=== PATIENT | female | born 1970 | race Hispanic/Latino ===

== ENCOUNTER 2017-12-14 20:21 | Emergency (ER) | payer MEDICARE ==
--- NOTE | 2017-12-15 01:40 | Emergency Department Report ---
[facility] Chief Complaint: Eye Problems Stated Complaint: EYE IRRITATION Time Seen by Provider: 12/15/17 01:28 Duration: 2 Days Severity: moderate Symptoms: Yes Eye Itching, Yes Eye Redness, Yes Mucous Drainage, Yes Purulent Drainage, No Eye Pain, No Blurred Vision, No Preceding URI, No H/O Allergic Rhinitis, No Contact Lens Use, No Trauma, No Fever Other History: 47-year-old female comes in with eye irritation for 2 days. She reports her eyes are crusted shut this morning now swollen. She admits that they itch. Denies any pain no contact usea contact. ED Review of Systems ROS: Stated complaint: EYE IRRITATION Other details as noted in HPI Comment: All other systems reviewed and negative ED Past Medical Hx - Past Medical History Previous Medical History?: Yes Hx Hypertension: Yes Hx CVA: Yes Hx Heart Attack/AMI: Yes Hx GERD: Yes Hx of Cancer: Yes (hodgkins lymphoma, lukemia) Hx Arthritis: Yes Hx Headaches / Migraines: Yes Hx Kidney Stones: Yes Hx Psychiatric Treatment: Yes (anxiety PTSD) Hx Asthma: Yes Hx Tuberculosis: Yes (Latent) Additional medical history: mitral valve regurgitation, myoptic nerve detoration , conductive and centry hearing loss - Surgical History Past Surgical History?: Yes Hx Cholecystectomy: Yes Hx Appendectomy: Yes Additional Surgical History: Heart cath, hysterectomy, hernia repair, colonoscopy, B/L wrist, Left Knee X3, Right Ankle X3, Back, Neck X3, B/L ears, tonsilectomy, adenoids, throat - Social History Smoking Status: Current Every Day Smoker Substance Use Type: None - Medications Home Medications: Home Medications Medication Instructions Recorded Confirmed Last Taken Type Erythromycin [Erythromycin Ophth 1 applic OP QID #1 tube 12/15/17 Unknown Rx Oint] [facility] Exam - Exam General: Vital signs noted. No distress. Alert and acting appropriately. Eye Exam: Both EOMI, Both Photophobia, Neither Injection, Neither Eye Foreign Body, Neither Lid Foreign Body, Neither Mucous Discharge, Neither Purulent Discharge HEENT: No Nasal Congestion, No Pharyngeal Erythema Remainder of HEENT: Normal ED Course Vital Signs 12/14/17 20:51 Temperature 98.8 F Pulse Rate 97 H Respiratory 16 Rate Blood Pressure 140/82 O2 Sat by Pulse 97 Oximetry ED Medical Decision Making - Medical Decision Making Patient has been evaluated by this provider fast track. Discussed the patient I will place on erythromycin ointment for her eyes sees 4 times a day. Recommended for patient to follow up with her primary care provider if her symptoms persist or gets worse. Critical care attestation.: If time is entered above; I have spent that time in minutes in the direct care of this critically ill patient, excluding procedure time. ED Disposition Clinical Impression: Conjunctivitis Qualifiers: Conjunctivitis type: unspecified Laterality: bilateral Qualified Code(s): H10.9 - Unspecified conjunctivitis Disposition: TO HOME OR SELFCARE Is pt being admited?: No Does the pt Need Aspirin: No Condition: Stable Instructions: Conjunctivitis (ED) Additional Instructions: Use eyedrops as prescribed. Wash hands before and after administration of eye medication Prescriptions: Erythromycin [Erythromycin Ophth Oint] 1 applic OP QID #1 tube Referrals: PRIMARY CARE, [Primary Care Provider] - 3-5 Days Forms: Work/School Release Form(ED)
[2017-12-15 02:13] VITALS: BP 142/80
== END 2017-12-15 02:13 | disposition home or self-care (01) ==
LOC: ED 20:21
DX: H10.9 Unspecified conjunctivitis (principal); I10 Essential (primary) hypertension; I25.2 Old myocardial infarction; K21.9 Gastro-esophageal reflux disease without esophagitis; M19.90 Unspecified osteoarthritis, unspecified site; G43.909 Migraine, unspecified, not intractable, without status migrainosus; J45.909 Unspecified asthma, uncomplicated; F17.200 Nicotine dependence, unspecified, uncomplicated; Z86.73 Personal history of transient ischemic attack (TIA), and cerebral infarction without residual deficits; Z86.11 Personal history of tuberculosis; Z90.49 Acquired absence of other specified parts of digestive tract; Z90.710 Acquired absence of both cervix and uterus
CPT/HCPCS: 99282